=== PATIENT | female | born 1995 | race Caucasian/White ===

== ENCOUNTER 2023-04-15 18:30 | Emergency (ER) | payer SELFPAY ==
[2023-04-15 19:28] LABS: Absolute Lymphocytes (CBC) 2.3 K/uL (0.7-4.9); Hematocrit 35.7 % (36.0-45.0); Lymphocytes % 23.5 % (15.3-44.8); MCV 85.3 fL (80-100); MPV 7.5 fL (7.6-11.3); Platelets 325 thou/uL (152-406); RBC Red Blood Cell Count 4.19 M/uL (3.86-4.86); Specific Gravity 1.028 (1.005-1.030)
[2023-04-15 19:30] LABS: Specific Gravity 1.028 (1.005-1.030); Urine Bacteria None Seen /HPF (<20); Urine Bilirubin NEGATIVE (Negative); Urine Blood 1+ (Negative); Urine Clarity Clear (Clear); Urine Color Light-Yellow (Yellow); Urine Crystals Unidentified Few /HPF (None Seen); Urine Glucose NEGATIVE (Negative); Urine Mucus Slight /HPF (None Seen); Urine Protein TRACE (Negative); Urine RBC 21-50 /HPF (None Seen); Urine Urobilinogen Normal (Normal); Urine pH 6.5 (5.0-7.0)
[2023-04-15] MEDS ORDERED: KETOROLAC 30 MG/ML INJ ONE (19:35)
[2023-04-15] MEDS ORDERED: NA CHLORIDE 0.9% 1,000 ML ONE (19:35)
[2023-04-15] MEDS ORDERED: FAMOTIDINE 20 MG/2 ML VIAL IV ONE (19:35)
[2023-04-15] MEDS ORDERED: MORPHINE 4 MG/ML SYR ONE (19:35)
[2023-04-15] MEDS ORDERED: ONDANSETRON 4 MG/2 ML VIAL ONE (19:45)
[2023-04-15 19:49] LABS: Albumin 3.6 g/dL (3.4-5.0); Bilirubin Total 0.2 mg/dL (0.2-1.0); Potassium 3.1 mEq/L (3.5-5.1); Protein, Total 7.7 g/dL (6.4-8.2)
--- NOTE | 2023-04-15 20:33 | RAD REPORT ---
EXAM DESCRIPTION: CT - Stone Protocol - 04/15/2023 8:21 pm CLINICAL HISTORY: Flank pain. FLANK PAIN COMPARISON: No comparisons TECHNIQUE: Axial images were obtained without oral or IV contrast. Lack of contrast limits solid org an and vascular assessment. The [id number] spans the entirety of the system partially obscuring uppermost abdomen and lung bases. Coronal reformatted images were obtained and reviewed. All CT scans are performed using dose optimization technique as appropriate and may include automated exposure control or mA/KV adjustment according to patient size. FINDINGS: The lower lung silva are clear. Imaged portions of the liver and spleen show no suspicious findings on non-contrast imaging. The panc reas and adrenal glands are normal. No pathologic lymphadenopathy in the abdomen or pelvis. 4 mm stone is present proximal left ureter with minimal left-sided hydronephrosis. Several nonobstruc ting caliceal calculi are present in the right kidney. No bowel obstruction, free air, free fluid or abscess. Normal appendix noted. No significant bony abnormality. IMPRESSION: 4 mm stone is present proximal left ureter resulting minimal left hydronephrosis. Punctate caliceal calculi present right kidney. No right-sided hydronephrosis.
--- NOTE | 2023-04-15 20:58 | EDPHYS ---
Physician Documentation [facility] Name: Bianca Palacios Age: 27 yrs Sex: Female : 1995 Arrival Date: 04/15/2023 Time: 18:30 Bed 14 Private MD: ED Physician Lanre Zuñiga HPI: 04/15 20:42 This 27 yrs old Female presents to ER via Ambulatory with complaints of Possible Kidney snw Stone, Flank Pain. 20:42 The patient complains of pain in the left mid back. Onset: The symptoms/episode snw began/occurred suddenly. Severity of pain: At its worst the pain was moderate severe. The patient has experienced a previous episode. It is unknown whether or not the patient has recently seen a physician. 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 - Social history:: Smoking status: Patient denies any tobacco usage or history of. ROS: 19:11 Eyes: Negative for injury, pain, redness, and discharge, ENT: Negative for injury, snw pain, and discharge, Neck: Negative for injury, pain, and swelling, Cardiovascular: Negative for chest pain, palpitations, and edema, Respiratory: Negative for shortness of breath, cough, wheezing, and pleuritic chest pain, Abdomen/GI: Negative for abdominal pain, nausea, vomiting, diarrhea, and constipation, : Negative for injury, bleeding, discharge, and swelling, MS/Extremity: Negative for injury and deformity, Neuro: Negative for headache, weakness, numbness, tingling, and seizure, Psych: Negative for depression, anxiety, suicide ideation, homicidal ideation, and hallucinations, 19:11 Skin: Negative for injury, rash, and discoloration, 19:11 Constitutional: Positive for poor PO intake, pallor, obvious pain, 19:11 Back: Positive for flank pain, on the left, Exam: 20:39 Head/Face: Normocephalic, atraumatic. Eyes: Pupils equal round and reactive to light, snw extra-ocular motions intact. Lids and lashes normal. Conjunctiva and sclera are non-icteric and not injected. Cornea within normal limits. Periorbital areas with no swelling, redness, or edema. ENT: Nares patent. No nasal discharge, no septal abnormalities noted. Tympanic membranes are normal and external auditory canals are clear. Oropharynx with no redness, swelling, or masses, exudates, or evidence of obstruction, uvula midline. Mucous membranes moist. Neck: Trachea midline, no thyromegaly or masses palpated, and no cervical lymphadenopathy. Supple, full range of motion without nuchal rigidity, or vertebral point tenderness. No Meningismus. Chest/axilla: Normal chest wall appearance and motion. Nontender with no deformity. No lesions are appreciated. Cardiovascular: Regular rate and rhythm with a normal S1 and S2. No gallops, murmurs, or rubs. Normal PMI, no JVD. No pulse deficits. Respiratory: Lungs have equal breath sounds bilaterally, clear to auscultation and percussion. No rales, rhonchi or wheezes noted. No increased work of breathing, no retractions or nasal flaring. Abdomen/GI: Soft, non-tender, with normal bowel sounds. No distension or tympany. No guarding or rebound. No evidence of tenderness throughout. 20:39 Skin: Warm, dry with normal turgor. Normal color with no rashes, no lesions, and no evidence of cellulitis. MS/ Extremity: Pulses equal, no cyanosis. Neurovascular intact. Full, normal range of motion. Neuro: Awake and alert, GCS 15, oriented to person, place, time, and situation. Cranial nerves II-XII grossly intact. Motor strength 5/5 in all extremities. Sensory grossly intact. Cerebellar exam normal. Normal gait. Psych: Awake, alert, with orientation to person, place and time. Behavior, mood, and affect are within normal limits. 20:39 Constitutional: The patient appears alert, awake, anxious, pale, uncomfortable, 20:39 Back: pain, that is moderate, of the left mid back, Vital Signs: 19:01 BP 147 / 98; Pulse 83; Resp 18; Temp 97.1; Pulse Ox 99% on R/A; Weight 72.57 kg; Height cm10 5 ft. 3 in. ; Pain 10/10; 20:33 BP 134 / 82; Pulse 85; Resp 16; Pulse Ox 99% ; Pain 1/10; jj7 21:24 BP 127 / 90; Pulse 93; Resp 17; Pulse Ox 100% ; Pain 0/10; jj7 19:01 Body Mass Index 28.34 (72.57 kg, 160.02 cm) cm10 19:01 Pain Scale: Adult cm10 20:33 Pain Scale: Adult jj7 21:24 Pain Scale: Adult jj7 MDM: 19:06 Patient medically screened. snw 20:56 Differential diagnosis: nephrolithiasis, pyelonephritis, UTI. Data reviewed: vital snw signs, nurses notes, lab test result(s), radiologic studies, CT scan. I considered the following discharge prescriptions or medication management in the emergency department Medications were administered in the Emergency Department. See MAR. Counseling: I had a detailed discussion with the patient and/or guardian regarding the historical points, exam findings, and any diagnostic results supporting the discharge/admit diagnosis, lab results, radiology results, the need for outpatient follow up, for definitive care, to return to the emergency department if symptoms worsen or persist or if there are any questions or concerns that arise at home. Response to treatment: the patient's symptoms have markedly improved after treatment. Special discussion: Based on the patient's Hx, exam, and Dx evaluation, there is no indication for emergent surgery or inpatient Tx. It is understood by the patient/guardian that if the Sx's persist or worsen they need to return immediately for re-evaluation. Based on the history and exam findings, there is no indication for further emergent testing or inpatient evaluation. I discussed with the patient/guardian the need to see the primary care provider for further evaluation of the symptoms. I discussed with the patient/guardian the need to see the urologist for further evaluation of the symptoms. 04/15 18:35 Order name: Urine W/Microscopic (UAM); Complete Time: 19:32 snw 04/15 19:11 Order name: PREGU; Complete Time: 19:32 snw 04/15 19:11 Order name: CBC with Diff; Complete Time: 19:48 snw 04/15 19:11 Order name: CMP; Complete Time: 20:56 snw 04/15 19:11 Order name: Lipase; Complete Time: 20:56 snw 04/15 19:11 Order name: CT Stone Protocol; Complete Time: 20:34 snw 04/15 19:11 Order name: IV Saline Lock; Complete Time: 19:28 snw 04/15 19:11 Order name: Labs collected and sent; Complete Time: 19:28 snw Administered Medications: 19:27 Drug: Famotidine IVP 20 mg IVP once; dilute with 10 mL 0.9% NaCl; give over 2 minutes jj7 Route: IVP; Site: left antecubital; 21:13 Follow up: Response: Marked relief of symptoms jj7 19:28 Drug: NS 0.9% IV 1000 ml IV at 1 bolus Per protocol; 1000 mL bolus Route: IV; Rate: 1 jj7 bolus; Site: left antecubital; 21:13 Follow up: IV Status: Completed infusion jj7 19:28 Drug: TORadol - Ketorolac IVP 15 mg IVP once Route: IVP; Site: left antecubital; jj7 21:13 Follow up: Response: Marked relief of symptoms jj7 19:28 Drug: morphine IVP or IV 4 mg IVP once over 4 mins Route: IVP; Infused Over: 4 mins; jj7 Site: left antecubital; 21:14 Follow up: Response: Marked relief of symptoms jj7 19:45 Drug: Ondansetron IVP 4 mg IVP once; over 2 minutes Route: IVP; Site: left antecubital; jj7 21:15 Follow up: Response: Marked relief of symptoms jj7 20:56 CANCELLED (Duplicate Order): potassiumeffervescent tablet 50 meq PO once; dissolve in 4 snw ounces of water or juice 21:12 Drug: Potassium Chloride PO 40 mEq PO once Route: PO; jj7 21:26 Follow up: Response: No adverse reaction jj7 21:13 Drug: Flomax PO 0.4 mg PO once Route: PO; jj7 21:26 Follow up: Response: No adverse reaction jj7 21:13 Drug: Rocephin IV 1 grams IV at calculated rate once; Given slow IV push per pharmacy jj7 instructions Route: IV; Rate: calculated rate; Site: left antecubital; 21:26 Follow up: IV Status: Completed infusion jj7 21:16 Drug: HYDROmorphone IM 1 mg IM once; at time of discharge Route: IM; Site: right jj7 gluteus; 21:26 Follow up: Response: Marked relief of symptoms jj7 Disposition Summary: 04/15/23 20:58 Discharge Ordered Notes: Magnesium at night Location: Home snw Condition: Stable snw Diagnosis - Hydronephrosis with renal and ureteral calculous obstruction snw - Hypokalemia snw Followup: snw - With: Emergency Department - When: As needed - Reason: Worsening of condition Followup: snw - With: Private Physician - When: 2 - 3 days - Reason: Recheck today's complaints, Continuance of care, Re-evaluation by your physician Discharge Instructions: - Discharge Summary Sheet snw - Potassium Content of Foods snw - Kidney Stones snw - Renal Colic snw - Dietary Guidelines to Help Prevent Kidney Stones snw - Hypokalemia snw - Rehydration, Adult snw Forms: - Work release form snw - Medication Reconciliation Form snw - Thank You Letter snw - Antibiotic Education snw - Prescription Opioid Use snw - Patient Portal Instructions snw - Leadership Thank You Letter snw Prescriptions: - acetaminophen-codeine 300-30 mg Oral tablet - take 1 tablet ORAL route 3 times per day as needed for pain; 18 tablet; snw Refills: 0, Product Selection Permitted - Augmentin 875-125 mg Oral Tablet - take 1 tablet ORAL route every 12 hours for 10 days; 20 tablet; Refills: 0, snw Product Selection Permitted - Diclofenac Sodium 75 mg Oral Tablet Sustained Release - take 1 tablet ORAL route 2 times per day; 30 tablet; Refills: 0, Product snw Selection Permitted Addendum: 04/19/2023 08:01 I was immediately available for consultation during this patient's visit. I did not e c2 personally see the patient or guide the patient's care. . Signatures: Dispatcher [employer] Amanda Vera FNP-C PILOT CAPTAIN-Abdirashidw Simeon Flannery RN RN jj7 Vashti Goldman RN RN cm10 Lanre Zuñiga MD MD ec2 Corrections: (The following items were deleted from the chart) 04/15 20:56 20:41 Potassium PO Effervescent Tablet 50 mEq PO once; dissolve in 4 ounces of water or snw juice ordered. snw
--- NOTE | 2023-04-15 20:58 | ER ---
Nurse's Notes [facility] Name: Bianca Palacios Age: 27 yrs Sex: Female : 1995 Arrival Date: 04/15/2023 Time: 18:30 Bed 14 Private MD: Diagnosis: Hydronephrosis with renal and ureteral calculous obstruction;Hypokalemia Presentation: 04/15 19:01 Chief complaint: Patient states: LLQ pain that radiates to left flank pain onset cm10 tonight. Pt states that she has vomited tonight as well. No urinary symptoms. Coronavirus screen: Vaccine status: Patient reports receiving the 2nd dose of the covid vaccine. Client denies travel out of the [place] in the last 14 days. Ebola Screen: Patient denies travel to an Ebola-affected area in the 21 days before illness onset. No symptoms or risks identified at this time. Initial Sepsis Screen: Does the patient meet any 2 criteria? No. Patient's initial sepsis screen is negative. Does the patient have a suspected source of infection? No. Patient's initial sepsis screen is negative. Risk Assessment: Do you want to hurt yourself or someone else? Patient reports no desire to harm self or others. Onset of symptoms was April 15, 2023. 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 - Social history:: Smoking status: Patient denies any tobacco usage or history of. Screenin:28 [facility] ED Fall Risk Assessment (Adult) History of falling in the last 3 months, jj7 including since admission No falls in past 3 months (0 pts) Confusion or Disorientation No (0 pts) Intoxicated or Sedated No (0 pts) Impaired Gait No (0 pts) Mobility Assist Device Used No (0 pt) Altered Elimination No (0 pt) Score/Fall Risk Level 0 - 2 = Low Risk Oriented to surroundings, Maintained a safe environment, Educated pt \T\ family on fall prevention, incl call for assistance when getting out of bed. Abuse screen: Denies threats or abuse. Nutritional screening: No deficits noted. Tuberculosis screening: No symptoms or risk factors identified. Assessment: 19:28 General: Appears in no apparent distress. uncomfortable, Behavior is calm, cooperative, jj7 appropriate for age. Pain: Complains of pain in left low back and left mid back Pain currently is 10 out of 10 on a pain scale. GI: Abd is soft and non tender X 4 quads. Abdomen is tender to palpation in anterior aspect of left lateral abdomen and left upper quadrant Reports upper abdominal pain, nausea, vomiting. Vital Signs: 19:01 BP 147 / 98; Pulse 83; Resp 18; Temp 97.1; Pulse Ox 99% on R/A; Weight 72.57 kg; Height cm10 5 ft. 3 in. ; Pain 10/10; 20:33 BP 134 / 82; Pulse 85; Resp 16; Pulse Ox 99% ; Pain 1/10; jj7 21:24 BP 127 / 90; Pulse 93; Resp 17; Pulse Ox 100% ; Pain 0/10; jj7 19:01 Body Mass Index 28.34 (72.57 kg, 160.02 cm) cm10 19:01 Pain Scale: Adult cm10 20:33 Pain Scale: Adult jj7 21:24 Pain Scale: Adult jj7 ED Course: 18:34 Patient arrived in ED. kj1 18:34 [facility] Pad[facility]C [facility] snw 18:34 Lanre Zuñiga MD is Attending Physician. snw 19:03 Triage completed. cm10 19:03 Arm band placed on Patient placed in waiting room. cm10 19:28 Patient has correct armband on for positive identification. Bed in low position. Call jj7 light in reach. Warm blanket given. 19:28 CBC with Diff Sent. jj7 19:28 CMP Sent. jj7 19:28 Lipase Sent. jj7 19:28 PREGU Sent. jj7 19:28 Urine W/Microscopic (UAM) Sent. jj7 20:21 CT Stone Protocol In Process Unspecified. EDMS 21:24 Provided Education on: MEDICATIONS. jj7 21:24 No provider procedures requiring assistance completed. IV discontinued, intact, jj7 bleeding controlled, No redness/swelling at site. Pressure dressing applied. Administered Medications: 19:27 Drug: Famotidine IVP 20 mg IVP once; dilute with 10 mL 0.9% NaCl; give over 2 minutes jj7 Route: IVP; Site: left antecubital; 21:13 Follow up: Response: Marked relief of symptoms jj7 19:28 Drug: NS 0.9% IV 1000 ml IV at 1 bolus Per protocol; 1000 mL bolus Route: IV; Rate: 1 jj7 bolus; Site: left antecubital; 21:13 Follow up: IV Status: Completed infusion jj7 19:28 Drug: TORadol - Ketorolac IVP 15 mg IVP once Route: IVP; Site: left antecubital; jj7 21:13 Follow up: Response: Marked relief of symptoms jj7 19:28 Drug: morphine IVP or IV 4 mg IVP once over 4 mins Route: IVP; Infused Over: 4 mins; jj7 Site: left antecubital; 21:14 Follow up: Response: Marked relief of symptoms jj7 19:45 Drug: Ondansetron IVP 4 mg IVP once; over 2 minutes Route: IVP; Site: left antecubital; jj7 21:15 Follow up: Response: Marked relief of symptoms jj7 20:56 CANCELLED (Duplicate Order): potassiumeffervescent tablet 50 meq PO once; dissolve in 4 snw ounces of water or juice 21:12 Drug: Potassium Chloride PO 40 mEq PO once Route: PO; jj7 21:26 Follow up: Response: No adverse reaction jj7 21:13 Drug: Flomax PO 0.4 mg PO once Route: PO; jj7 21:26 Follow up: Response: No adverse reaction jj7 21:13 Drug: Rocephin IV 1 grams IV at calculated rate once; Given slow IV push per pharmacy jj7 instructions Route: IV; Rate: calculated rate; Site: left antecubital; 21:26 Follow up: IV Status: Completed infusion jj7 21:16 Drug: HYDROmorphone IM 1 mg IM once; at time of discharge Route: IM; Site: right jj gluteus; 21:26 Follow up: Response: Marked relief of symptoms jj7 Medication: 19:28 VIS not applicable for this client. jj7 Outcome: 20:58 Discharge ordered by . jessi 21:24 Discharged to home ambulatory, jj7 21:24 Condition: improved 21:24 Discharge instructions given to patient, Instructed on discharge instructions, follow up and referral plans. medication usage, Demonstrated understanding of instructions, follow-up care, medications, Prescriptions given X 3, 22:10 Patient left the ED. jj7 Signatures: Dispatcher [employer] EDMS Amanda Padilla, CYBER SECURITY-C CYBER SECURITY-Rose Lim kj1 Simeon Flannery, RN RN jj7 Vashti Goldman RN RN cm10
[2023-04-15] MEDS ORDERED: HYDROMORPHONE HCL 1 MG/ML INJ ONE (21:30)
[2023-04-15 22:22] VITALS: TEMP 97.1
[2023-04-15 22:25] VITALS: BP 127/90; O2SAT 100
== END 2023-04-15 22:10 | disposition home or self-care (01) ==
LOC: ER 18:30
DX: N13.2 Hydronephrosis with renal and ureteral calculous obstruction (principal); E87.6 Hypokalemia
CPT/HCPCS: 36415; 74176; 76377; 80053; 81001; 81025; 83690; 85025; 96361; 96372; 96374; 96375; 99284; J1170; J2405; J7030

== ENCOUNTER 2023-04-17 11:19 | Emergency (ER) | payer SELFPAY ==
[2023-04-17] MEDS ORDERED: ONDANSETRON 4 MG/2 ML VIAL ONE (12:32)
[2023-04-17] MEDS ORDERED: HYDROMORPHONE HCL 1 MG/ML INJ ONE (12:32)
[2023-04-17 13:04] LABS: Absolute Lymphocytes (CBC) 1.5 K/uL (0.7-4.9); Lymphocytes % 16.5 % (15.3-44.8); MCV 85.8 fL (80-100); Platelets 263 thou/uL (152-406); RBC Red Blood Cell Count 4.08 M/uL (3.86-4.86)
[2023-04-17 13:16] LABS: Albumin 3.4 g/dL (3.4-5.0); Bilirubin Total 0.3 mg/dL (0.2-1.0); Potassium 3.7 mEq/L (3.5-5.1); Protein, Total 7.4 g/dL (6.4-8.2)
--- NOTE | 2023-04-17 13:27 | ER ---
Nurse's Notes [facility] Name: Bianca Palacios Age: 27 yrs Sex: Female : 1995 Arrival Date: 04/17/2023 Time: 11:19 Bed 13 Private MD: Diagnosis: Kidney stone, ureterolithiasis, renal colic right side Presentation: 04/17 11:38 Chief complaint: Patient states: I was here Friday for the same symptoms and i was kd3 diagnosed with a kidney stone and sent home with medications but the pain is unbearable. Coronavirus screen: Vaccine status: Patient reports receiving the 2nd dose of the covid vaccine. Ebola Screen: No symptoms or risks identified at this time. Initial Sepsis Screen: Does the patient meet any 2 criteria? No. Patient's initial sepsis screen is negative. Does the patient have a suspected source of infection? No. Patient's initial sepsis screen is negative. Risk Assessment: Do you want to hurt yourself or someone else? Patient reports no desire to harm self or others. Onset of symptoms was April 17, 2023. 11:38 Method Of Arrival: Ambulatory kd3 11:38 Acuity: JUJU 3 kd3 Triage Assessment: 11:41 General: Appears uncomfortable, Behavior is calm, cooperative. Pain: Complains of pain kd3 in abdomen. GI: Abdomen is non-distended. 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 - Social history:: Smoking status: Patient denies any tobacco usage or history of. Screenin:00 [facility] ED Fall Risk Assessment (Adult) Score/Fall Risk Level 0 - 2 = Low Risk. Abuse eh3 screen: Denies threats or abuse. Denies injuries from another. Nutritional screening: No deficits noted. Tuberculosis screening: No symptoms or risk factors identified. Assessment: 12:00 General: Appears in no apparent distress. uncomfortable, Behavior is calm, cooperative, eh3 appropriate for age. Pain: Complains of pain in left upper quadrant and left lower quadrant Pain currently is 9 out of 10 on a pain scale. Noted to be guarding, resistant to movement. Neuro: Level of Consciousness is awake, alert, obeys commands, Oriented to person, place, time, situation. Cardiovascular: Capillary refill < 3 seconds Patient's skin is warm and dry. Respiratory: Airway is patent Respiratory effort is even, unlabored, Respiratory pattern is regular, symmetrical. GI: Abdomen is round non-distended, Bowel sounds present X 4 quads. Abd is soft X 4 quads Abdomen is tender to palpation in left upper quadrant and left lower quadrant. : Reports cramping, in left flank(s) Denies burning with urination, urinary frequency, urgency. Derm: Skin is pink, warm \T\ dry. Musculoskeletal: Circulation, motion, and sensation intact. 13:00 Reassessment: Patient appears in no apparent distress at this time. Patient and/or eh3 family updated on plan of care and expected duration. Pain level reassessed. Patient is alert, oriented x 3, equal unlabored respirations, skin warm/dry/pink. Patient states symptoms have improved. Vital Signs: 11:38 Pulse 89; Resp 17; Temp 98.4(O); Pulse Ox 100% ; Weight 72.57 kg; Height 5 ft. 3 in. ; kd3 Pain 10/10; 11:41 BP 146 / 101; kd3 12:15 BP 137 / 98; Pulse 77; Resp 18; Pulse Ox 99% on R/A; eh3 13:00 BP 128 / 85; Pulse 66; Resp 16; Pulse Ox 99% on R/A; eh3 11:38 Body Mass Index 28.34 (72.57 kg, 160.02 cm) kd3 11:38 Pain Scale: Adult kd3 ED Course: 11:20 Patient arrived in ED. rg4 11:34 Will Powell MD is Attending Physician. sp3 11:34 Pop Acosta DO is Attending Physician. ms3 11:41 Triage completed. kd3 11:41 Arm band placed on right wrist. kd3 12:00 Patient has correct armband on for positive identification. Bed in low position. Call eh3 light in reach. Side rails up X2. Provided Education on: use of call issa. Pulse ox on. NIBP on. 12:09 Nubia Velasco RN is Primary Nurse. eh3 12:26 Will Powell MD is Attending Physician. sp3 12:40 Inserted saline lock: 20 gauge in left antecubital area, using aseptic technique. Blood eh3 collected. 13:27 Tremaine Luque MD is Referral Physician. sp3 13:35 No provider procedures requiring assistance completed. IV discontinued, intact, eh3 bleeding controlled, No redness/swelling at site. Pressure dressing applied. Administered Medications: 12:40 Drug: HYDROmorphone IVP 1 mg IVP once Route: IVP; Site: left antecubital; eh3 13:08 Follow up: Response: No adverse reaction; Pain is decreased; RASS: Alert and Calm (0) eh3 12:40 Drug: Ondansetron IVP 4 mg IVP once; over 2 minutes Route: IVP; Site: left antecubital; eh3 13:00 Follow up: Response: No adverse reaction; Nausea is decreased eh3 Medication: 13:35 VIS not applicable for this client. eh3 Outcome: 13:27 Discharge ordered by MD. sp3 13:43 Discharged to home ambulatory, eh3 13:43 Condition: stable 13:43 Discharge instructions given to patient, Instructed on discharge instructions, follow up and referral plans. Demonstrated understanding of instructions, follow-up care, 13:43 Patient left the ED. eh3 Signatures: Ariane Kaminski rg4 Pop Acosta DO DO ms3 Will Powell MD MD sp3 Gretchen Camacho RN RN 3 Nubia Velasco, TYSON RN eh3 Corrections: (The following items were deleted from the chart) 12:56 12:40 HYDROmorphone IVP 1 mg IVP in right antecubital eh3 eh3
--- NOTE | 2023-04-17 13:27 | EDPHYS ---
Physician Documentation [facility] Name: Bianca Palacios Age: 27 yrs Sex: Female : 1995 Arrival Date: 04/17/2023 Time: 11:19 Bed 13 Private MD: ED Physician Will Powell HPI: 04/17 12:44 This 27 yrs old Female presents to ER via Ambulatory with complaints of Possible Kidney sp3 Stone. 12:44 27-year-old female diagnosed with kidney stone 2 days ago with 4 mm stone in the sp3 proximal left ureter and multiple punctate stones on the right kidney now presents to the ED with continued emesis and bilateral flank pain. Patient is currently on Tylenol with codeine, diclofenac and Augmentin as prescribed by ED physician 2 days ago. She states she has been compliant on her medications. She denies fever, urinary frequency, dysuria, gross hematuria, chest pain, shortness of breath, syncope, near syncope, or any other signs or symptoms on ROS at this time.. [employer]: 13:35 LMP 04/17/2023, unknown eh3 Historical: - Allergies: 11:41 No Known Allergies; kd3 - Immunization history:: Adult Immunizations up to date. - Social history:: Smoking status: Patient denies any tobacco usage or history of. ROS: 12:46 Constitutional: Negative for fever, chills, and weight loss, Eyes: Negative for injury, sp3 pain, redness, and discharge, ENT: Negative for injury, pain, and discharge, Neck: Negative for injury, pain, and swelling, Cardiovascular: Negative for chest pain, palpitations, and edema, Respiratory: Negative for shortness of breath, cough, wheezing, and pleuritic chest pain, Back: Negative for injury and pain, MS/Extremity: Negative for injury and deformity, Skin: Negative for injury, rash, and discoloration, Neuro: Negative for headache, weakness, numbness, tingling, and seizure, Psych: Negative for depression, anxiety, suicide ideation, homicidal ideation, and hallucinations, Allergy/Immunology: Negative for hives, rash, and allergies, Endocrine: Negative for neck swelling, polydipsia, polyuria, polyphagia, and marked weight changes, 12:46 All other systems are negative, Exam: 12:46 Constitutional: This is a well developed, well nourished patient who is awake, alert, sp3 and in no acute distress. Head/Face: Normocephalic, atraumatic. Eyes: Pupils equal round and reactive to light, extra-ocular motions intact. Lids and lashes normal. Conjunctiva and sclera are non-icteric and not injected. Cornea within normal limits. Periorbital areas with no swelling, redness, or edema. Neck: Trachea midline, no thyromegaly or masses palpated, and no cervical lymphadenopathy. Supple, full range of motion without nuchal rigidity, or vertebral point tenderness. No Meningismus. Chest/axilla: Normal chest wall appearance and motion. Nontender with no deformity. No lesions are appreciated. Cardiovascular: Regular rate and rhythm with a normal S1 and S2. No gallops, murmurs, or rubs. Normal PMI, no JVD. No pulse deficits. Respiratory: Lungs have equal breath sounds bilaterally, clear to auscultation and percussion. No rales, rhonchi or wheezes noted. No increased work of breathing, no retractions or nasal flaring. Skin: Warm, dry with normal turgor. Normal color with no rashes, no lesions, and no evidence of cellulitis. MS/ Extremity: Pulses equal, no cyanosis. Neurovascular intact. Full, normal range of motion. Neuro: Awake and alert, GCS 15, oriented to person, place, time, and situation. Cranial nerves II-XII grossly intact. Motor strength 5/5 in all extremities. Sensory grossly intact. Cerebellar exam normal. Normal gait. Psych: Awake, alert, with orientation to person, place and time. Behavior, mood, and affect are within normal limits. 12:46 Abdomen/GI: Mild right-sided lower abdominal pain however CVA tenderness also bilaterally. No peritoneal signs, rebound or guarding noted. Nonsurgical abdomen noted., Vital Signs: 11:38 Pulse 89; Resp 17; Temp 98.4(O); Pulse Ox 100% ; Weight 72.57 kg; Height 5 ft. 3 in. ; kd3 Pain 10/10; 11:41 BP 146 / 101; kd3 12:15 BP 137 / 98; Pulse 77; Resp 18; Pulse Ox 99% on R/A; eh3 13:00 BP 128 / 85; Pulse 66; Resp 16; Pulse Ox 99% on R/A; eh3 11:38 Body Mass Index 28.34 (72.57 kg, 160.02 cm) kd3 11:38 Pain Scale: Adult kd3 MDM: 12:40 Patient medically screened. sp3 12:47 Data reviewed: vital signs, nurses notes, old medical records, lab test result(s). ED sp3 course: 27-year-old female with recent kidney stone, the largest which was 4 mm on the left side and punctate stones on the right side now presents to the ED for continued abdominal pain. I do not believe repeat CT scan of the abdomen pelvis is indicated at this time. We will administer symptomatic control and recheck basic laboratory values including creatinine level. Patient is in the process of getting follow-up with a local urologist. No change in home regimen of medications. We will continue diclofenac, Tylenol with codeine and Augmentin which she already has. Dilaudid and Zofran given. If labs are negative we will safely discharge patient home.. 13:26 ED course: Laboratory values demonstrate no significant abnormality. We will discharge sp3 patient home as outlined above.. 04/17 12:40 Order name: CBC with Diff; Complete Time: 13:26 sp3 04/17 12:40 Order name: CMP; Complete Time: 13:26 sp3 04/17 12:40 Order name: IV Saline Lock; Complete Time: 12:41 sp3 04/17 12:40 Order name: Labs collected and sent; Complete Time: 12:41 sp3 Administered Medications: 12:40 Drug: HYDROmorphone IVP 1 mg IVP once Route: IVP; Site: left antecubital; 3 13:08 Follow up: Response: No adverse reaction; Pain is decreased; RASS: Alert and Calm (0) 3 12:40 Drug: Ondansetron IVP 4 mg IVP once; over 2 minutes Route: IVP; Site: left antecubital; 3 13:00 Follow up: Response: No adverse reaction; Nausea is decreased 3 Disposition Summary: 04/17/23 13:27 Discharge Ordered Notes: Location: Home sp3 Condition: Stable sp3 Diagnosis - Kidney stone, ureterolithiasis, renal colic right side sp3 Followup: sp3 - With: Tremaine Luque MD - When: Upon discharge from the Emergency Department - Reason: Recheck today's complaints, Continuance of care Discharge Instructions: - Discharge Summary Sheet sp3 - Kidney Stones sp3 Forms: - Medication Reconciliation Form sp3 - Thank You Letter sp3 - Antibiotic Education sp3 - Prescription Opioid Use sp3 - Patient Portal Instructions sp3 - Leadership Thank You Letter sp3 Signatures: Dispatcher [employer] Will Christianson MD MD sp3 Gretchen Camacho RN RN kd3 Nubia Velasco RN RN eh3
[2023-04-17 14:13] VITALS: TEMP 98.4
[2023-04-17 14:24] VITALS: O2SAT 99
[2023-04-17 14:30] VITALS: BP 128/85
== END 2023-04-17 13:43 | disposition home or self-care (01) ==
LOC: ER 11:19
DX: N20.2 Calculus of kidney with calculus of ureter (principal)
CPT/HCPCS: 36415; 80053; 85025; 96374; 96375; 99284; J1170; J2405